=== PATIENT | female | born 1985 | race African-American/Black ===

== ENCOUNTER 2016-12-07 20:55 | Emergency (ER) | payer MEDICAID, OTHER ==
[~2016-12-07] VITALS: Ht 170.2 cm; Wt 87.0 kg
[2016-12-07 22:33] VITALS: BP 121/68
[2016-12-07] MEDS ORDERED: CEFTRIAXONE SODIUM 250 MG/VIAL IM ONE (23:30)
== END 2016-12-08 00:21 | disposition home or self-care (01) ==
LOC: ER 20:55
DX: Z20.2 Contact with and (suspected) exposure to infections with a predominantly sexual mode of transmission (principal); F17.210 Nicotine dependence, cigarettes, uncomplicated
CPT/HCPCS: 81025; 96372; 99283; J0696

== ENCOUNTER 2020-03-03 14:04 | Emergency (ER) | payer MEDICAID ==
[~2020-03-03] VITALS: Ht 170.2 cm; Wt 73.0 kg
[2020-03-03] MEDS ORDERED: SODIUM CHLORIDE 0.9% 1,000 ML IV ONE (14:41)
[2020-03-03 15:15] LABS: BASOPHILS % 0.9 % (0.0-2.0); EOSINOPHILS % 1.2 % (0.0-5.0); HEMATOCRIT. 40.3 % (36.0-48.0); HEMOGLOBIN. 13.4 g/dL (12.0-16.0); LYMPHOCYTES % 30.7 % (20.0-50.0); MEAN PLATELET VOLUME 10.6 fl (7.4-10.4); MONOCYTES % 9.2 % (2.0-8.0); PLATELET 140 x1000/uL (130-400); RED BLOOD CELL COUNT 4.33 mill/uL (4.2-5.4); RED CELL DISTRIBUTION WIDTH 14.7 % (11.6-14.6)
[2020-03-03] MEDS ORDERED: MORPHINE SULFATE 4 MG/ML CPJ (NOT FOR IM USE) IV ONE (15:15)
[2020-03-03 15:20] LABS: CHLORIDE 111 mEq/L (98-107)
[2020-03-03 15:25] LABS: PROTHROMBIN TIME 10.5 sec (9.6-11.0)
[2020-03-03 15:41] LABS: HCG SCREEN NEGATIVE
[2020-03-03] MEDS ORDERED: KETOROLAC 30MG/ML VIAL IV ONE (17:30)
[2020-03-03] MEDS ORDERED: ONDANSETRON HCL 4MG/2ML INJ IV STA (20:19)
[2020-03-03] MEDS ORDERED: MORPHINE SULFATE 4 MG/ML CPJ (NOT FOR IM USE) IV STA (20:19)
[2020-03-03 20:41] VITALS: BP 121/73
[2020-03-03] MEDS ORDERED: IOHEXOL-300 100 ML BOTTLE ONE (23:25)
== END 2020-03-03 21:04 | disposition home or self-care (01) ==
LOC: ER 14:04
DX: R10.84 Generalized abdominal pain (principal); R11.2 Nausea with vomiting, unspecified; Z98.890 Other specified postprocedural states
CPT/HCPCS: 36415; 74177; 76830; 76856; 80053; 83690; 84703; 85025; 85610; 93005; 93976; 96361; 96374; 96375; 96376; 99285; J1885; J2270; J2405; J7030; Q9967

== ENCOUNTER 2021-09-11 12:52 | Emergency (ER) | payer MEDICAID ==
[~2021-09-11] VITALS: Ht 170.2 cm; Wt 70.0 kg
[2021-09-11 14:00] LABS: CLARITY URINE CLEAR (CLEAR); COLOR URINE YELLOW (YELLOW); KETONES URINE TRACE (NEGATIVE); LEUKOCYTE ESTERASE URINE 2+ (NEGATIVE); NITRITE URINE NEGATIVE (NEGATIVE); OCCULT BLOOD URINE NEGATIVE (NEGATIVE); PH URINE 6.5 (4.5-8.0); PROTEIN URINE TRACE (NEGATIVE); SPECIFIC GRAVITY URINE 1.023 (1.005-1.030)
[2021-09-11 15:15] LABS: BASOPHILS % 1.1 % (0.0-2.0); EOSINOPHILS % 1.5 % (0.0-5.0); HEMATOCRIT. 37.7 % (36.0-48.0); HEMOGLOBIN. 12.6 g/dL (12.0-16.0); LYMPHOCYTES % 34.5 % (20.0-50.0); MEAN CORPUSCULAR HEMOGLOBIN 30.5 pg (28.0-32.0); MEAN CORPUSCULAR VOLUME 91.2 fL (81.0-99.0); MEAN PLATELET VOLUME 10.3 fl (7.4-10.4); MONOCYTES % 7.4 % (2.0-8.0); NEUTROPHILS % 55.5 % (40.0-76.0); PLATELET 220 x1000/uL (130-400); RED BLOOD CELL COUNT 4.13 mill/uL (4.2-5.4); RED CELL DISTRIBUTION WIDTH 14.9 % (11.6-14.6)
[2021-09-11 15:22] LABS: CHLORIDE 109 mEq/L (98-107)
[2021-09-11] MEDS ORDERED: NITR100C MT (15:41)
[2021-09-11] MEDS ORDERED: PHEN-815 MT (15:41)
[2021-09-11 15:44] VITALS: BP 122/77
== END 2021-09-11 15:46 | disposition home or self-care (01) ==
LOC: ER 13:10
DX: N39.0 Urinary tract infection, site not specified (principal); Z98.890 Other specified postprocedural states
CPT/HCPCS: 36415; 80053; 81003; 81025; 85025; 87186; 99283

== ENCOUNTER 2023-11-11 18:32 | Emergency (ER) | payer MEDICAID ==
[~2023-11-11] VITALS: Ht 170.2 cm; Wt 81.0 kg
[~2023-11-11 18:32] MED LIST: NITR100C MT; PHEN-815 MT
[2023-11-11 18:39] VITALS: O2SAT 100
[2023-11-11 19:05] VITALS: BP 118/65; PULSE 95; RESP 16; TEMP 98.5
== END 2023-11-12 00:44 | disposition left against medical advice (07) ==
LOC: ER 18:32
DX: R10.9 Unspecified abdominal pain (principal); Z53.21 Procedure and treatment not carried out due to patient leaving prior to being seen by health care provider
CPT/HCPCS: 99281